=== PATIENT | male | born 1980 | race Caucasian/White ===

== ENCOUNTER 2022-09-04 10:54 | Outpatient (CLI) | payer OTHER ==
--- NOTE | 2022-09-04 12:26 | MRI Report ---
PROCEDURE: THORACIC SPINE WO INDICATIONS: THORACIC PAIN TECHNIQUE: Noncontrast sagittal T1 spine echo and T2 fast spin echo, sagittal STIR, axial T1 and T2 fast spin ec ho through the thoracic spine. COMPARISON: None. FINDINGS: Image quality: Excellent. Alignment and Curvature: There is accentuated thoracic kyphosis. No significant AP alignment abno rmality can be seen. Bone Marrow: Marrow is of normal overall signal. No acute vertebral body compression fractures. Mi ld chronic anterior wedge deformities are seen at the T7, T8, T9, and T10 levels. Spinal Cord: Visualized spinal cord is normal in size and signal. Paraspinous Soft Tissues: No paravertebral masses. Miscellaneous: Within the mid thoracic spine, several levels of mild neuroforaminal narrowing can be seen. Throughout the mid thoracic spine, there is prominent epidural fat seen posteriorly from approximatel y T3-T10 levels, with mild to moderate generalized central canal narrowing. IMPRESSION: Epidural lipomatosis can be seen throughout the mid thoracic spine, with several levels of mild to mo derate central canal narrowing. Remote lower thoracic spine anterior wedge deformities, with associated accentuated thoracic kyphosis . Reviewed by: Ben Tsai MD on 09/04/2022 11:24 AM [facility] Approved by: Ben Tsai MD on 09/04/2022 11:24 AM [facility] Station ID: [id number]
== END 2022-09-04 10:55 | disposition home or self-care (01) ==
LOC: DI 10:54
DX: E88.2 Lipomatosis, not elsewhere classified (principal); M48.04 Spinal stenosis, thoracic region

== ENCOUNTER 2022-09-18 16:01 | Outpatient (CLI) | payer OTHER ==
--- NOTE | 2022-09-18 18:35 | MRI Report ---
PROCEDURE: LUMBAR SPINE WO INDICATIONS: LOW BACK PAIN TECHNIQUE: Noncontrast sagittal T1 spin echo and T2 fast echo, sagittal STIR, axial T1 and T2 fast spin echo thr ough the lumbar spine. In cases with scoliosis, additional coronal T2 fast spin echo may be performe d. COMPARISON: Correlation is made with the overlapping portions of thoracic spine MRI, 09/04/2022. FINDINGS: Image quality: Excellent. Alignment and Curvature: There is normal bony alignment. Bone Marrow: Marrow is of normal overall signal. No acute vertebral body compression fractures. Spinal Cord: Conus medullaris terminates at the L1 level. Visualized cord demonstrates normal signa l and size. Paraspinous Soft Tissues: No paravertebral masses. Along the posterior aspect of the left kidney, t here is a simple appearing cyst that measures up to 1 cm. T12-L1: Normal in appearance. L1-L2: Normal in appearance. L2-L3: Normal in appearance. L3-L4: No significant abnormality is seen. L4-L5: The disc height and disc signal are well preserved. Mild disc bulge is seen. Mild to mod erate facet hypertrophy is seen. Mild bilateral neural foraminal narrowing is seen. Minimal to mild central canal narrowing is seen. L5-S1: The disc height is well-preserved. There is loss of disc signal seen. Mild disc bulge is see n, with a central disc protrusion. Note is made of an annular fissure posteriorly. Moderate facet h ypertrophy is seen. Moderate bilateral neural foraminal narrowing is seen, left worse than right. No significant central canal narrowing is seen. IMPRESSION: Lower lumbar spine degenerative changes are seen, which are worst at the L5-S1 level. No significant epidural lipomatosis can be seen within the lumbar spine. Reviewed by: Ben Tsai MD on 09/18/2022 5:33 PM [place] Approved by: Ben Tsai MD on 09/18/2022 5:33 PM [place] Station ID: [id number]
== END 2022-09-18 16:02 | disposition home or self-care (01) ==
LOC: DI 16:01
DX: M47.816 Spondylosis without myelopathy or radiculopathy, lumbar region (principal); M47.817 Spondylosis without myelopathy or radiculopathy, lumbosacral region; M48.061 Spinal stenosis, lumbar region without neurogenic claudication; M48.07 Spinal stenosis, lumbosacral region